=== PATIENT | female | born 1965 | race African-American/Black ===

== ENCOUNTER 2017-05-21 06:15 | Emergency (ER) | payer OTHER ==
[~2017-05-21] VITALS: Ht 157.5 cm; Wt 59.0 kg
[2017-05-21 06:36] VITALS: BP 105/48
--- NOTE | 2017-05-21 06:36 | NUR ---
52 Y/O F BIBA W/C/O ALOC, FACIAL TWITCHING X TODAY. MED HX: SEIZURES/HTN/CERVICAL CA, AND TRAUMATIC BRAIN INJURY. ER MADE AWARE.
--- NOTE | 2017-05-21 06:59 | NUR ---
PT TAKEN FOR CT SCAN.
--- NOTE | 2017-05-21 07:10 | NUR ---
PT BACK FROM CT.
--- NOTE | 2017-05-21 07:19 | NUR ---
Pt report given to JANET CAZARES AND JANET NICHOLE. Transfer of care at this time.
--- NOTE | 2017-05-21 07:48 | NUR ---
PT'S SON SHRUTHI CALLED;ASKWED ABOUT PT'S CONDITION;ASKED IF SHE IS AWAKE AND TALIKING TO US;INFORMED HIM THAT SHE IS AWAKE AND ALERT AND TALKING TO US.EXPLAINED TO HIM THAT WE ARE WAITING FOR THE LAB RESULTS;
[2017-05-21 08:26] LABS: BASOPHILS # (AUTO) 0.1 K/uL (0.00-0.22); BASOPHILS % (AUTO) 1.8 % (0.0-2.0); EOSINOPHILS # (AUTO) 0.1 K/uL (0-0.4); EOSINOPHILS % (AUTO) 1.3 % (0.0-4.0); HEMOGLOBIN 13.6 g/dL (12.0-16.0); LYMPHOCYTES # (AUTO) 0.9 K/uL (2.5-16.5); LYMPHOCYTES % (AUTO) 15.3 % (20.5-51.1); MEAN CORPUSCULAR HEMOGLOBIN 31 pg (27-31); MEAN CORPUSCULAR HGB CONC 34 g/dL (33-37); MEAN CORPUSCULAR VOLUME 90 fL (80-94); MONOCYTES # (AUTO) 0.3 K/uL (0.8-1.0); MONOCYTES % (AUTO) 4.4 % (1.7-9.3); NEUTROPHILS # (AUTO) 4.4 K/uL (1.8-7.7); NEUTROPHILS % (AUTO) 77.2 % (42.2-75.2); PLATELET COUNT (AUTO) 205 K/uL (140-450); RED BLOOD CELL COUNT(AUTO) 4.43 MIL/uL (4.20-5.40); WHITE BLOOD COUNT (AUTO) 5.8 K/uL (4.8-10.8)
[2017-05-21] MEDS ORDERED: ALPRAZolam 0.5 MG TAB PO SCH (08:40)
[2017-05-21 08:44] LABS: ANION GAP 11.4 (8-16); CARBON DIOXIDE 28.7 mmol/L (21-32); CREATININE 0.7 mg/dL (0.6-1.3); POTASSIUM 4.1 mmol/L (3.5-5.1)
[2017-05-21 08:50] LABS: ALBUMIN 3.7 g/dL (3.4-5.0); TOTAL BILIRUBIN 0.4 mg/dL (0.0-1.0)
--- NOTE | 2017-05-21 09:20 | NUR ---
PT LYING ON BED;ALL MONITORS IN PLACED;AWAKE AND ALERT;NO RESPIRATORY DISTRESS NOTED;WILL CONTINUE TO MONITOR PT.
--- NOTE | 2017-05-21 10:00 | NUR ---
PT SLEEPING AT THIS TIME;ALL MONITORS IN PLACED;BREATHING EVEN AND UNLABORED;WILL CONTINUE TO MONITOR PT.
--- NOTE | 2017-05-21 10:17 | NUR ---
PT AWOKE;RESTING ON BED;NO ACUTE DISTRESS NOTED;WILL CONTINUE TO MONITOR PT.
--- NOTE | 2017-05-21 10:20 | NUR ---
DR ORDERED FOR 1 MG ALPRAZOLAM;PT REFUSED TO TAKE THE OTHER 0.5 MG ALPRAZOLAM PILL.PT STATES"I' WIIL TAKE ONE PILL ONLY"I THINK THAT'S ENOUGH"EXPLAINED TO PT THAT HE NEEDS TO TAKE 1 MG BUT PT STILL REFUSED;0.5 MG [facility].
--- NOTE | 2017-05-21 10:20 | NUR ---
Octavio rahman in ED - 05/21/17 at 1109 by MEDBEBETOF ORDERED FOR 1 MG ATIVAN;PT REFUSED TO TAKE THE OTHER 0.5 MG ATIVAN PILL.PT STATES"I' WIIL TAKE ONE PILL ONLY"I THINK THAT'S ENOUGH"EXPLAINED TO PT THAT HE NEEDS TO TAKE 1 MG BUT PT STILL REFUSED;0.5 MG ATIVAN RETURNED TO [facility].
--- NOTE | 2017-05-21 10:40 | NUR ---
called nichelle turner to give report;put me on hold 2x;waited 5 minutes;will call back again.
--- NOTE | 2017-05-21 10:54 | NUR ---
called kadi turner;gave report to JANET KRUGER;ASKED IF WE CAN ARRANGE TRANSPORT FOR THE PT;TRACK REPAIRER HELPER YAMILETH WILL ARRANGE FOR TRANSPORT;
--- NOTE | 2017-05-21 11:00 | NUR ---
WAITING FOR TRANSPORT.WILL CONTINUE TO MONITOR
[2017-05-21 11:33] LABS: APPEARANCE,URINE HAZY (CLEAR); BILIRUBIN,URINE NEGATIVE (NEGATIVE); BLOOD, URINE NEGATIVE (NEGATIVE); COLOR,URINE YELLOW (YELLOW); LEUKOCYTE ESTERASE ,URINE NEGATIVE (NEGATIVE); NITRITE, URINE NEGATIVE (NEGATIVE); PH,URINE 6.5 (5.0-9.0); UGLUCOSE NEGATIVE (NEGATIVE)
[2017-05-21 11:34] LABS: BARBITURATE, URINE NEG. ng/ml (NEG <=200); BENZODIAZEPINE, URINE NEG. ng/mL (NEG <=200); CANNABINOID, URINE NEG. ng/mL (NEG <=50); COCAINE, URINE NEG. ng/mL (NEG <=300); OPIATE, URINE NEG. ng/mL (NEG <=2000); PHENCYCLIDINE SCREEN,URINE NEG. ng/mL (NEG <=25)
--- NOTE | 2017-05-21 11:45 | NUR ---
Patient discharged with v/s stable. Written and verbal after care instructions given and explained. Patient alert, oriented and verbalized understanding of instructions. Ambulance Transport with to intermediate. All questions addressed prior to discharge. ID band removed. Patient advised to follow up with PMD. Rx of ATIVAN given. Patient educated on indication of medication including possible reaction and side effects. Opportunity to ask questions provided and answered.GAVE REPORT TO JANET KRUGER AND EMS.
[2017-05-21 11:46] LABS: RBC,URINE NONE SEEN /HPF (0-5); WBC,URINE 0-5 (RARE) /HPF (0-5)
[2017-05-21 11:47] VITALS: BP 102/46
== END 2017-05-21 11:45 | disposition home or self-care (01) ==
LOC: MED 06:15
DX: G40.89 Other seizures (principal); I10 Essential (primary) hypertension; Z85.41 Personal history of malignant neoplasm of cervix uteri; Z98.890 Other specified postprocedural states
CPT/HCPCS: 36415; 70450; 80053; 80305; 81001; 81025; 82140; 83605; 83880; 84484; 85025; 99285

== ENCOUNTER 2019-04-02 17:16 | Emergency (ER) | payer OTHER, MEDICAID ==
[~2019-04-02] VITALS: Ht 157.5 cm; Wt 86.2 kg
--- NOTE | 2019-04-02 17:16 | NUR ---
Patient KAREEM COOK from [facility], triaged by RN. Waiting for an available bed.
[2019-04-02 17:21] VITALS: BP 130/78
--- NOTE | 2019-04-02 17:45 | NUR ---
KAREEM [facility], PT FOUND FACE DOWN, WITH ABRASION TO RIGHT EYEBROW, NO ACTIVE BLEEDING, UNKNOWN IF ANY LOC; GCS 15. HX SEIZURE, HTN.PATIENT STATES PAIN OF 0/10 AT THIS TIME. PATIENT POSITIONED FOR COMFORT; HOB ELEVATED; BEDRAILS UP X2; BED DOWN. ER MD MADE AWARE OF PT STATUS.
--- NOTE | 2019-04-02 17:45 | NUR ---
Patient transferred to bed 5 for further care. RN evaluating patient at bedside.
--- NOTE | 2019-04-02 18:46 | NUR ---
Patient returned from CT scan. RN re-evaluating patient at bedside.
--- NOTE | 2019-04-02 19:08 | NUR ---
Pt report given to IGOR GONZALES. Transfer of care at this time.
--- NOTE | 2019-04-02 19:09 | NUR ---
RECEIVED BEDSIDE REPORT FROM JANET FERGUSON. ASSUMED CARE AT THIS TIME.
[2019-04-02 19:23] LABS: BASOPHILS % (AUTO) 0.1 % (0.0-2.0); EOSINOPHILS # (AUTO) 0.1 K/uL (0-0.4); EOSINOPHILS % (AUTO) 1.6 % (0.0-4.0); HEMATOCRIT 49.2 % (36-48); HEMOGLOBIN 16.2 g/dL (12.0-16.0); LYMPHOCYTES # (AUTO) 1.7 K/uL (2.5-16.5); LYMPHOCYTES % (AUTO) 33.8 % (20.5-51.1); MEAN CORPUSCULAR HEMOGLOBIN 32 pg (27-31); MEAN CORPUSCULAR HGB CONC 33 g/dL (33-37); MEAN CORPUSCULAR VOLUME 95.9 fL (80-94); MONOCYTES # (AUTO) 0.3 K/uL (0.8-1.0); MONOCYTES % (AUTO) 5.5 % (1.7-9.3); PLATELET COUNT (AUTO) 189 K/uL (140-450); RED BLOOD CELL COUNT(AUTO) 5.12 MIL/uL (4.20-5.40); RED CELL DISTRIBUTION WIDTH 16.1 % (11.6-13.7); WHITE BLOOD COUNT (AUTO) 5.2 K/uL (4.8-10.8)
--- NOTE | 2019-04-02 19:47 | NUR ---
PT SEATED UPRIGHT IN BED. PT ABLE TO CONVERSE APPROPIATELY.SPEECH CLEAR. PT KNOWS HER WHEREABOUTS. BEDRAIL X2 UP. WILL CONTINUE TO MONITOR.
--- NOTE | 2019-04-02 19:56 | NUR ---
LAB AT BEDSIDE TO REDRAW LABS, FIRST SET OF LABS HEMOLYZED.
[2019-04-02 20:45] LABS: ALBUMIN 3.4 g/dL (3.4-5.0); ANION GAP 18.4 (8-16); CARBON DIOXIDE 26.5 mmol/L (21-32); CREATININE 0.6 mg/dL (0.6-1.3); TOTAL BILIRUBIN 0.4 mg/dL (0.0-1.0)
[2019-04-02 20:53] LABS: POTASSIUM 2.9 mmol/L (3.5-5.1)
--- NOTE | 2019-04-02 21:19 | NUR ---
PT UP FOR DISCHARGE, ATTEMPTED TO CALL SHRUTHI, PT DAUGHTER AND NUMBER ON FILE IS NOT IN SERVICE
[2019-04-02 21:20] VITALS: BP 130/63
--- NOTE | 2019-04-02 21:22 | NUR ---
SPOKE WITH FRANCO AT [facility] WHO STATED THEY DO NOT ARRANGE TRANSPORTATION AT TIME HOUR.
--- NOTE | 2019-04-02 21:31 | NUR ---
PT SEEN WITH EYES CLOSED. EASILY AROUSABLE TO NAME. BEDRAILX2 UP. WILL CONTINUE TO MONITOR.
--- NOTE | 2019-04-02 22:20 | NUR ---
TRANSPORTATION AT BEDSIDE.
--- NOTE | 2019-04-02 22:22 | NUR ---
Patient discharged with v/s stable. Written and verbal after care instructions given and explained. Patient alert, oriented and verbalized understanding of instructions. Wheel Chair Assisted with by caregiver. All questions addressed prior to discharge. ID band removed. Patient advised to follow up with PMD. Rx of k-dur given. Patient educated on indication of medication including possible reaction and side effects. Opportunity to ask questions provided and answered.
== END 2019-04-02 22:22 ==
LOC: MED 17:16
DX: S00.81XA Abrasion of other part of head, initial encounter (principal); I10 Essential (primary) hypertension; E87.6 Hypokalemia; G93.89 Other specified disorders of brain; W19.XXXA Unspecified fall, initial encounter; Y93.89 Activity, other specified; Y92.89 Other specified places as the place of occurrence of the external cause; Y99.8 Other external cause status
CPT/HCPCS: 36415; 70450; 70486; 80053; 85025; 93005; 99284

== ENCOUNTER 2020-04-19 15:35 | Emergency (ER) | payer OTHER, BC ==
[~2020-04-19] VITALS: Ht 165.1 cm; Wt 63.5 kg
[2020-04-19 15:40] VITALS: BP 180/90
--- NOTE | 2020-04-19 16:14 | NUR ---
55 YO F KAREEM FROM [facility] C/O FEVER AND DIARRHEA X 1 DAY. PER FACILITY, PT COVID +. DENIES COUGH, SOB, . DENIES ANY OTHER SYMPTOMS. IN ED, PT AFEBRILE. BP ELEVATED 180/90. ABDOMEN SOFT, NONTENDER WITH ACTIVE BS. PT RESTING IN BED. ERMD MADE AWARE. PMH: SEIZURES, HTN, DEVT DELAY, SUBDURAL HEMATOMA NKA
--- NOTE | 2020-04-19 16:15 | NUR ---
PT ABLE TO GIVE URINE SAMPLE AT THIS TIME.
--- NOTE | 2020-04-19 16:20 | NUR ---
XRAY AT BEDSIDE
[2020-04-19 16:26] LABS: BASOPHILS # (AUTO) 0.1 K/uL (0.00-0.22); BASOPHILS % (AUTO) 0.9 % (0.0-2.0); EOSINOPHILS # (AUTO) 0.1 K/uL (0-0.4); HEMATOCRIT 40.6 % (36-48); HEMOGLOBIN 13.9 g/dL (12.0-16.0); LYMPHOCYTES # (AUTO) 1.5 K/uL (2.5-16.5); MEAN CORPUSCULAR HEMOGLOBIN 32 pg (27-31); MEAN CORPUSCULAR HGB CONC 34 g/dL (33-37); MEAN CORPUSCULAR VOLUME 92.1 fL (80-94); MONOCYTES # (AUTO) 0.3 K/uL (0.8-1.0); MONOCYTES % (AUTO) 4.2 % (1.7-9.3); NEUTROPHILS % (AUTO) 71.9 % (42.2-75.2); PLATELET COUNT (AUTO) 204 K/uL (140-450); RED BLOOD CELL COUNT(AUTO) 4.41 MIL/uL (4.20-5.40)
[2020-04-19 16:31] LABS: APPEARANCE,URINE CLEAR (CLEAR); BILIRUBIN,URINE NEGATIVE (NEGATIVE); BLOOD, URINE NEGATIVE (NEGATIVE); COLOR,URINE YELLOW (YELLOW); LEUKOCYTE ESTERASE ,URINE TRACE (NEGATIVE); NITRITE, URINE NEGATIVE (NEGATIVE); UGLUCOSE TRACE (NEGATIVE)
--- NOTE | 2020-04-19 16:37 | NUR ---
JEFFY SWAB DONE AND BROUGHT TO LAB
[2020-04-19 16:40] LABS: RBC,URINE 0 /HPF (0-5); WBC,URINE 0-5 /HPF (0-5)
[2020-04-19 16:50] LABS: ANION GAP 13.1 (8-16); CARBON DIOXIDE 27.5 mmol/L (21-32); CREATININE 0.8 mg/dL (0.6-1.3); POTASSIUM 3.6 mmol/L (3.5-5.1); TOTAL BILIRUBIN 0.5 mg/dL (0.0-1.0)
--- NOTE | 2020-04-19 17:20 | NUR ---
SPOKE WITH THE LICENSED CLUB MANAGER AT [facility] DUE TO THEM REFUSING TO LET HER RETURN DESPITE HAVING A NEGATIVE COVID TEST. PER OUR CONVERSATION, THEIR POLICY IS TO REQUIRE PT TO REMAIN IN THE HOSPITAL TO QUARANTINE FOR 10 DAYS. PT TESTED (+) 1 WEEK AGO, AND IS NOW TESTING (-) HERE AT [facility]. SHE WILL GET IN CONTACT WITH THE [employer] SAMPLER AND CALL ME BACK WITHIN 30 MIN.
[2020-04-19 19:02] VITALS: BP 148/71
--- NOTE | 2020-04-19 19:03 | NUR ---
Patient discharged with v/s stable. Written and verbal after care instructions given and explained. Patient alert, oriented and verbalized understanding of instructions. Ambulance Transport with to senior living. All questions addressed prior to discharge. ID band removed. Patient advised to follow up with PMD.
== END 2020-04-19 18:15 ==
LOC: MED 15:35
DX: R19.7 Diarrhea, unspecified (principal); I10 Essential (primary) hypertension; R56.9 Unspecified convulsions; Z02.89 Encounter for other administrative examinations; Z20.828 Contact with and (suspected) exposure to other viral communicable diseases
CPT/HCPCS: 36415; 71045; 80053; 81001; 84484; 85025; 99284

== ENCOUNTER 2021-07-12 09:40 | Emergency (ER) | payer OTHER ==
[~2021-07-12] VITALS: Ht 157.5 cm; Wt 69.9 kg
[2021-07-12 09:52] VITALS: BP 146/82
--- NOTE | 2021-07-12 09:59 | NUR ---
PATIENT AMBULATED TO BED 8.
--- NOTE | 2021-07-12 10:10 | NUR ---
56 y/o F BIB self from home c/o left ear lobe pain x 2 weeks. Patient reports L ear pain 7/10, sharp/intermittent, non-radiating pain. Firm lump noted left ear lobe that is tender to palpation. Denies medications prior to arrival. Denies fever, chills, hearing loss, nausea, vomiting. PMH/Sx/Meds: Denies NKDA
--- NOTE | 2021-07-12 10:15 | NUR ---
Patient discharged with v/s stable. Written and verbal after care instructions given and explained. Patient verbalized understanding. Ambulatory with steady gait. All questions addressed prior to discharge. Advised to follow up with PMD.
== END 2021-07-12 10:15 | disposition home or self-care (01) ==
LOC: MED 09:40
DX: L91.0 Hypertrophic scar (principal); I10 Essential (primary) hypertension; Z98.890 Other specified postprocedural states
CPT/HCPCS: 99281

== ENCOUNTER 2021-12-11 14:24 | Emergency (ER) | payer OTHER ==
[~2021-12-11] VITALS: Ht 157.5 cm; Wt 76.7 kg
[2021-12-11 14:30] VITALS: BP 136/71
--- NOTE | 2021-12-11 14:30 | NUR ---
PT TRANSPORTED TO BED 10 VIA [facility]
--- NOTE | 2021-12-11 14:51 | NUR ---
56 Y/O FEMALE BIBA FROM [facility], PER EMS PT WAS FOUND BY ROOMMATE LYING ON HER LEFT SIDE UNRESPONSIVE, CONFUSED, UNABLE TO ANSWER QUESTIONS AND AGITATED. PT NOW A/OX3 TO SELF, PLACE, AND SITUATION, CANNOT ANSWER FOR DATE. SEIZURE PADS IN PLACE. NKA PMH: TBI, SEIZURES, HTN
--- NOTE | 2021-12-11 15:05 | NUR ---
LAB AT BEDSIDE
[2021-12-11 15:19] LABS: BASOPHILS % (AUTO) 0.2 % (0.0-2.0); EOSINOPHILS # (AUTO) 0.1 K/uL (0-0.4); HEMATOCRIT 39.5 % (36-48); HEMOGLOBIN 13.2 g/dL (12.0-16.0); LYMPHOCYTES # (AUTO) 1.8 K/uL (2.5-16.5); LYMPHOCYTES % (AUTO) 20.3 % (20.5-51.1); MEAN CORPUSCULAR HEMOGLOBIN 31 pg (27-31); MEAN CORPUSCULAR HGB CONC 33 g/dL (33-37); MEAN CORPUSCULAR VOLUME 92.2 fL (80-94); MONOCYTES # (AUTO) 0.3 K/uL (0.8-1.0); MONOCYTES % (AUTO) 3.4 % (1.7-9.3); NEUTROPHILS # (AUTO) 6.5 K/uL (1.8-7.7); NEUTROPHILS % (AUTO) 75.1 % (42.2-75.2); PLATELET COUNT (AUTO) 178 K/uL (140-450); RED BLOOD CELL COUNT(AUTO) 4.28 MIL/uL (4.20-5.40); RED CELL DISTRIBUTION WIDTH 13.3 % (11.6-13.7); WHITE BLOOD COUNT (AUTO) 8.7 K/uL (4.8-10.8)
[2021-12-11 15:37] LABS: ALBUMIN 3.3 g/dL (3.4-5.0); ANION GAP 15.8 (8-16); CARBON DIOXIDE 24.1 mmol/L (21-32); CREATININE 0.8 mg/dL (0.6-1.3); TOTAL BILIRUBIN 0.5 mg/dL (0.0-1.0)
[2021-12-11 15:39] LABS: POTASSIUM 2.9 mmol/L (3.5-5.1)
[2021-12-11] MEDS ORDERED: POTASSIUM CHLORIDE 10 MEQ TABER PO ONE (15:50)
[2021-12-11] MEDS ORDERED: IBUPROFEN 600 MG TAB PO ONE (15:50)
[2021-12-11] MEDS ORDERED: POTA10TA70 PO (16:19)
[2021-12-11] MEDS ORDERED: IBUP-2213 PO (16:21)
--- NOTE | 2021-12-11 16:22 | NUR ---
SPOKE TO SON SHRUTHI ON PHONE, TRANSFERRED CALL TO PORTABLE FOR PT TO SPEAK
--- NOTE | 2021-12-11 17:00 | NUR ---
[employer] SPORTSCASTER FOR PT AT 1800
--- NOTE | 2021-12-11 17:14 | NUR ---
PT OFFERED SANDWICH AND JUICE, HOB ELEVATED, TOLERATED WELL
--- NOTE | 2021-12-11 18:36 | NUR ---
[facility] DEAL TRANSPORTING PT VIA [facility]
--- NOTE | 2021-12-11 18:36 | NUR ---
SPOKE TO ROMAN RN OF [facility], REPORT GIVEN
[2021-12-11 18:37] VITALS: BP 144/77
--- NOTE | 2021-12-11 18:38 | NUR ---
Patient discharged with v/s stable. Written and verbal after care instructions given and explained. Patient alert, oriented and verbalized understanding of instructions. Ambulance Transport with to senior living. All questions addressed prior to discharge. ID band removed. Patient advised to follow up with PMD. Rx of IBUPROFEN AND POTASSIUM given. Patient educated on indication of medication including possible reaction and side effects. Opportunity to ask questions provided and answered.
== END 2021-12-11 18:38 ==
LOC: MED 14:24
DX: G40.89 Other seizures (principal); E87.6 Hypokalemia
CPT/HCPCS: 36415; 80053; 85025; 99283

== ENCOUNTER 2023-02-04 09:00 | Emergency (ER) | payer MEDICARE, OTHER ==
[~2023-02-04] VITALS: Ht 165.1 cm; Wt 71.7 kg
[~2023-02-04 09:00] MED LIST: IBUP-2213 PO; POTA10TA70 PO
[2023-02-04 09:10] VITALS: BP 128/69; PULSE 93; RESP 16; TEMP 97.8; O2SAT 99
[2023-02-04 09:49] LABS: BASOPHILS % (AUTO) 0.3 % (0.0-2.0); EOSINOPHILS # (AUTO) 0.1 K/uL (0-0.4); EOSINOPHILS % (AUTO) 0.5 % (0.0-4.0); HEMATOCRIT 39.5 % (36-48); HEMOGLOBIN 13.3 g/dL (12.0-16.0); LYMPHOCYTES # (AUTO) 1.2 K/uL (2.5-16.5); MEAN CORPUSCULAR HEMOGLOBIN 31 pg (27-31); MEAN CORPUSCULAR HGB CONC 34 g/dL (33-37); MONOCYTES # (AUTO) 0.4 K/uL (0.8-1.0); MONOCYTES % (AUTO) 3.6 % (1.7-9.3); NEUTROPHILS % (AUTO) 84.6 % (42.2-75.2); PLATELET COUNT (AUTO) 202 K/uL (140-450); RED BLOOD CELL COUNT(AUTO) 4.34 MIL/uL (4.20-5.40); RED CELL DISTRIBUTION WIDTH 13.6 % (11.6-13.7); WHITE BLOOD COUNT (AUTO) 10.6 K/uL (4.8-10.8)
[2023-02-04 10:09] LABS: ALBUMIN 3.6 g/dL (3.4-5.0); ANION GAP 15.2 (8-16); CALCIUM 9.4 mg/dL (8.5-10.1); CARBON DIOXIDE 25.3 mmol/L (21-32); CREATININE 0.9 mg/dL (0.6-1.3); POTASSIUM 3.5 mmol/L (3.5-5.1); TOTAL BILIRUBIN 0.5 mg/dL (0.0-1.0); TOTAL PROTEIN, SERUM 7.3 g/dL (6.4-8.2)
[2023-02-04 10:14] LABS: INR 0.99 (0.8-1.2); PARTIAL THROMBOPLASTIN TIME 25.4 secs (22-35.6); PROTHROMBIN TIME 10.4 secs (10.8-13.4)
[2023-02-04 13:10] LABS: LACTIC ACID 2.3 mmol/L (0.4-2.0)
[2023-02-04] MEDS ORDERED: NACL 0.9% 1,000 ML IV ONE (13:15)
[2023-02-04 14:33] LABS: APPEARANCE,URINE CLEAR (CLEAR); BILIRUBIN,URINE NEGATIVE (NEGATIVE); BLOOD, URINE 2+ (NEGATIVE); COLOR,URINE YELLOW (YELLOW); LEUKOCYTE ESTERASE ,URINE NEGATIVE (NEGATIVE); NITRITE, URINE NEGATIVE (NEGATIVE); PROTEIN,URINE NEGATIVE (NEGATIVE); UGLUCOSE NEGATIVE (NEGATIVE); UROBILINOGEN,URINE 0.2 EU/dL (0.2 - 1)
[2023-02-04 14:46] LABS: BACTERIA,URINE 10-30 (MOD) /HPF (None Seen); SQUAMOUS EPITHELIAL CELL,UR 4-10 (MOD) /LPF (0-3 (FEW)); WBC,URINE 0-5 /HPF (0-5)
[2023-02-04] MEDS ORDERED: LOPE-289 PO (15:18)
[2023-02-04 15:58] VITALS: BP 138/68; PULSE 93; RESP 16; TEMP 97.8; O2SAT 99
== END 2023-02-04 15:58 | disposition home or self-care (01) ==
LOC: MED 09:00
DX: R51.9 Headache, unspecified (principal); I10 Essential (primary) hypertension; Z86.73 Personal history of transient ischemic attack (TIA), and cerebral infarction without residual deficits; Z79.899 Other long term (current) drug therapy; W18.30XA Fall on same level, unspecified, initial encounter; Y93.89 Activity, other specified; Y92.89 Other specified places as the place of occurrence of the external cause; Y99.8 Other external cause status
CPT/HCPCS: 36415; 70450; 71045; 72125; 80053; 80173; 81001; 82553; 83605; 83615; 83880; 84484; 85025; 85379; 85610; 85730; 87040; 87086; 93005; 96360; 99285; J7030

== ENCOUNTER 2023-12-07 06:43 | Emergency (ER) | payer OTHER ==
[~2023-12-07] VITALS: Ht 167.6 cm; Wt 69.4 kg
[~2023-12-07 06:43] MED LIST changes: +LOPE-289 PO
[2023-12-07 06:50] VITALS: BP 151/91; PULSE 94; RESP 18; TEMP 98.4; O2SAT 99
[2023-12-07 09:18] LABS: BASOPHILS % (AUTO) 0.2 % (0.0-2.0); EOSINOPHILS % (AUTO) 0.2 % (0.0-4.0); HEMATOCRIT 40.5 % (36-48); HEMOGLOBIN 13.6 g/dL (12.0-16.0); MEAN CORPUSCULAR HEMOGLOBIN 30 pg (27-31); MEAN CORPUSCULAR HGB CONC 34 g/dL (33-37); MEAN CORPUSCULAR VOLUME 89.9 fL (80-94); MONOCYTES # (AUTO) 0.2 K/uL (0.8-1.0); MONOCYTES % (AUTO) 2.9 % (1.7-9.3); NEUTROPHILS # (AUTO) 6.5 K/uL (1.8-7.7); NEUTROPHILS % (AUTO) 83.7 % (42.2-75.2); PLATELET COUNT (AUTO) 221 K/uL (140-450); RED BLOOD CELL COUNT(AUTO) 4.51 MIL/uL (4.20-5.40); RED CELL DISTRIBUTION WIDTH 12.9 % (11.6-13.7); WHITE BLOOD COUNT (AUTO) 7.8 K/uL (4.8-10.8)
[2023-12-07 09:45] LABS: ANION GAP 9.8 (8-16); CALCIUM 9.3 mg/dL (8.5-10.1); CARBON DIOXIDE 29.4 mmol/L (21-32); CREATININE 0.8 mg/dL (0.6-1.3); POTASSIUM 3.2 mmol/L (3.5-5.1)
[2023-12-07 09:55] LABS: ALANINE AMINOTRANSFERASE 18 U/L (12-78); ALBUMIN 3.7 g/dL (3.4-5.0); ALCOHOL, BLOOD < 3 mg/dL (<10); ASPARTATE AMINOTRANSFERASE 19 U/L (15-37); BILIRUBIN,DIRECT 0.1 mg/dL (0.0-0.3); TOTAL BILIRUBIN 0.5 mg/dL (0.0-1.0); TOTAL PROTEIN, SERUM 7.5 g/dL (6.4-8.2)
[2023-12-07 10:06] LABS: ALKALINE PHOSPHATASE 58 U/L (50-136)
[2023-12-07 12:01] LABS: APPEARANCE,URINE CLEAR (CLEAR); BILIRUBIN,URINE NEGATIVE (NEGATIVE); BLOOD, URINE NEGATIVE (NEGATIVE); COLOR,URINE YELLOW (YELLOW); LEUKOCYTE ESTERASE ,URINE NEGATIVE (NEGATIVE); NITRITE, URINE NEGATIVE (NEGATIVE); PROTEIN,URINE NEGATIVE (NEGATIVE); UGLUCOSE NEGATIVE (NEGATIVE); UROBILINOGEN,URINE 0.2 EU/dL (0.2 - 1)
[2023-12-07 12:13] LABS: AMPHETAMINE, URINE NEGATIVE ng/ml (NEG <=1000); BARBITURATE, URINE NEGATIVE ng/ml (NEG <=200); BENZODIAZEPINE, URINE NEGATIVE ng/mL (NEG <=200); CANNABINOID, URINE NEGATIVE ng/mL (NEG <=50); COCAINE, URINE NEGATIVE ng/mL (NEG <=300); OPIATE, URINE NEGATIVE ng/mL (NEG <=2000); PHENCYCLIDINE SCREEN,URINE NEGATIVE ng/mL (NEG <=25)
[2023-12-07 13:18] VITALS: BP 148/80; PULSE 65; RESP 14; TEMP 97.2; O2SAT 100
== END 2023-12-07 13:18 | disposition home or self-care (01) ==
LOC: MED 06:43
DX: R41.82 Altered mental status, unspecified (principal); I10 Essential (primary) hypertension; Z86.73 Personal history of transient ischemic attack (TIA), and cerebral infarction without residual deficits; Z86.69 Personal history of other diseases of the nervous system and sense organs; Z79.899 Other long term (current) drug therapy
CPT/HCPCS: 36415; 70450; 71045; 80048; 80076; 80305; 81003; 84484; 85025; 93005; 99285; G0482; Q0092